=== PATIENT | male | born 1950 | race Caucasian/White ===

== ENCOUNTER 2017-07-30 12:17 | Observation (INO) | payer OTHER, MEDICARE ==
[~2017-07-30] VITALS: Ht 175.3 cm; Wt 73.5 kg
[~2017-07-30 12:17] MED LIST: AMBIEN10 M1; AMINO ACID1 EACH PO; ENBREL50 MG/1 ML SC; GABAPENTIN300 M2 PO; HYDROCODON-ACE1 EAC1 PO; MULTI-DAY VITA1 EACH PO; PREDNISONE 10MG10 M1 PO; PROAIR HFA8.5 GM INH; SYMBICORT 16010.2 GM INH; VALIUM5 M2 PO
--- NOTE | 2017-07-30 13:40 | RADIOLOGY REPORT ---
EXAMINATION: XR CHEST CLINICAL INFORMATION: Cough and shortness of breath, rule out pneumonia. COMPARISON: 10/18/2016. TECHNIQUE: 2 views of the chest were obtained. FINDINGS: Of note the lateral aspect of the right hemithorax is incompletely included in the study, specifically the right costophrenic angle is not well visualized. Visualized portions of lungs are clear bilaterally. There is no evidence of pleural effusion or pneumothorax. The central pulmonary vasculature is within normal limits. The cardiomediastinal silhouette is not enlarged. The bony structures and overlying soft tissues are unremarkable. IMPRESSION: No acute cardiopulmonary findings.
--- NOTE | 2017-07-30 14:38 | ED DYSPNEA/ASTHMA COMPLAINT ---
History of Present Illness General Chief Complaint: Wheezing/Asthma Stated Complaint: ASTHMA/SENT BY DR URIOSTEGUI Source: patient, dr uriostegui Exam Limitations: no limitations Vital Signs & Intake/Output Vital Signs & Intake/Output Vital Signs Date Time Temp Pulse Resp B/P B/P Pulse O2 O2 Flow FiO2 Mean Ox Delivery Rate 07/31 06 98.6 76 20 120/72 94 Room Air 07/30 2249 Room Air Room Air 07/30 2227 98.7 82 20 128/70 97 Venti Mask 07/30 1845 98.6 112 20 149/100 93 Room Air 07/30 1617 92 07/30 1529 93 Room Air 07/30 1529 98.4 90 20 156/94 93 Room Air 07/30 1450 95 07/30 1248 97.9 98 20 139/92 95 Room Air ED Intake and Output 07/31 0000 07/30 1200 Intake Total 300 Output Total Balance 300 Intake, Oral 300 Patient 162 lb Weight Weight Estimated Measurement Method Allergies Coded Allergies: NO KNOWN ALLERGIES (01/11/16) Triage Note: PATIENT TO ER C/C ?ASTHMA EXACERBATION. PATIENT OF DR. URIOSTEGUI, SENT IN FOR EVAL. USING ALBUTEROL, Z-PACK, PREDNISONE WITHOUT RELIEF. WHEEZING NOTED B/L. Triage Nurses Notes Reviewed? yes HPI: Patient presents for evaluation of worsening asthma exacerbation over the past 4 days despite the use of nebulizers and prednisone and azithromycin at home. Pt sent in by pulmonary md. patient states that he has had asthma since 5 years old and typically knows that if he doesn't respond to antibiotics and steroids that he needs medical attention. He denies any associated fever or cold symptoms. He is cautious with going out into the cold air. Symptoms worsen with exertion and nothing seems to make him feel better at this time. (Radha SHIN,Musa Ortiz) Reconcile Medications Albuterol Sulfate (Proair Hfa) 8.5 GM HFA.AER.AD 2 PUF INH PRN ASTHMA ( Reported) Amino Acids (Amino Acid) 1 EACH CAPSULE 1 CAP PO BID SUPPLEMENT (Reported) Budesonide/Formoterol Fumarate (Symbicort 160-4.5 Mcg Inhaler) 10.2 GM HFA.AER.AD 2 PUF INH BID ASTHMA (Reported) Etanercept (Enbrel) 50 MG/1 ML SYRINGE 50 MG SC Q9D RA (Reported) Hydrocodone/Acetaminophen (Hydrocodon-Acetaminophn 10-325) (Unknown Strength) TABLET (Unknown Dose) PO PRN RA (Reported) Multivitamin (Multi-Day Vitamins) 1 EACH TABLET 1 TAB PO BID SUPPLEMENT ( Reported) Zolpidem Tartrate (Ambien) (Unknown Strength) TABLET (Unknown Dose) UNKNOWN ( Reported) (Ghazal SHIN,Roberta) Past History Travel History Traveled to [place] past 21 day No Medical History Any Pertinent Medical History? 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 No (Radha SHIN,Musa Ortiz) Review of Systems Review of Systems Constitutional: Reports: no symptoms. EENTM: Reports: no symptoms. Respiratory: Reports: see HPI. Cardiovascular: Reports: no symptoms. GI: Reports: no symptoms. Genitourinary: Reports: no symptoms. Musculoskeletal: Reports: no symptoms. Skin: Reports: no symptoms. Neurological/Psychological: Reports: no symptoms. Hematologic/Endocrine: Reports: no symptoms. Immunologic/Allergic: Reports: no symptoms. All Other Systems: Reviewed and Negative (Radha SHIN,Musa Ortiz) Physical Exam Physical Exam Respiratory: see below Comments: Gen.: Well-nourished, well-developed, no acute respiratory distress. Head: Normocephalic, atraumatic. Eyes: Normal inspection bilaterally Ears: Normal inspection bilaterally Nose: Normal inspection Throat/mouth : Moist mucosa Neck: Supple, full range of motion, no goiter Heart: Regular rate and rhythm, no murmurs rubs or gallops Lungs: Decreased air entry bilaterally with scattered end expiratory wheezing and delayed expiration Chest: Nontender Back: Normal range of motion Abdomen: Soft, nontender, nondistended, normal bowel sounds Extremities: Normal range of motion grossly, equal radial pulses, no cyanosis clubbing or edema Neurologic: Cranial nerves grossly intact, speech is clear Skin: warm and dry Psychiatric: Calm, cooperative, no apparent delusions or hallucinations (Radha SHIN,Musa Ortiz) Physical Exam Respiratory: see below Core Measures ACS in differential dx? No CVA/TIA Diagnosis No Sepsis Present: No Sepsis Focused Exam Completed? No (Ghazal SHIN,Roberta) Progress Plan of Care: Orders Procedure Date/time Status Regular Diet 07/31 B Active RT: Reevaluation 07/31 1109 Active Change service to 07/31 0720 Active CBC WITHOUT DIFFERENTIAL 07/31 0600 Active BASIC ELECTROLYTES PLUS BUN&CR 07/31 0600 Active RT RE-EVALUATION 07/31 UNK Complete PEAK FLOW MEASUREMENT (GEN) 07/31 UNK Active XRY-CHEST XRAY, TWO VIEWS 07/31 UNK Active STREP PNEUMO URINARY ANTIGEN 07/30 2316 Complete LEGIONELLA URINARY ANTIGEN 07/30 2316 Complete LOWER RESPIRATORY CULTURE 07/30 2316 Active RT: Evaluation 07/30 2248 Active Pathway - chart 07/30 2136 Active Vital Signs 07/30 203 Active Teach/Educate 07/30 2031 Active Pain Treatment and Response 07/30 2031 Active Nutritional Intake, Monitor 07/30 2031 Active Isolation 07/30 203 Active Intake & Output 07/30 203 Active Patient Care Conference 07/30 203 Active Activity/Ambulation 07/30 2031 Active Pathway - chart 07/30 1844 Active Patient Data 07/[address] in observation 07/30 1648 Active ED Holding Orders 07/30 1648 Active Vital Signs 07/30 1648 Active Code Status 07/30 1648 Active Intake & Output 07/30 1532 Active GLYCOSYLATED HGB 07/30 1452 Complete RAPID VIRAL INFLUENZA A 07/30 1436 Complete CBC WITHOUT DIFFERENTIAL 07/30 1436 Complete BASIC METABOLIC PANEL 07/30 1436 Complete TRC EVALUATION (GEN) 07/30 UNK Complete THERAPIST ORDERS 07/30 UNK Complete OXYGEN SETUP (GEN) 07/30 UNK Active House Staff 07/30 UNK Active Lab Add-on Test 07/30 UNK Active VTE Mechanical Prophylaxis 07/30 UNK Active Current Medications Sig/Swati Start time Last Medication Dose Stop Time Status Admin Methylprednisolone 40 MG Q8 07/31 1400 AC (Solumedrol) Azithromycin 500 MG DAILY 07/31 1039 AC (Zithromax) Acetylcysteine 2 ML BID 07/31 1000 AC (Mucosol 20%) Enoxaparin Sodium 40 MG DAILY 07/31 1000 AC (Lovenox) Albuterol Sulfate 3 ML EVERY 4 HRS/AWAKE 07/31 0800 AC 07/31 (Proventil) 0827 Budesonide/ 2 PUF BID 07/30 2199 AC 07/31 Formoterol Fumarate 1013 (Symbicort) Multivitamins 1 TAB BID 07/30 2199 AC 07/31 Therapeutic 1012 (Theragran-M Vitamins Tabs) Acetaminophen 650 MG Q6P PRN 07/30 2144 AC (Tylenol) Albuterol Sulfate 2 PUF BID PRN 07/30 2144 AC (Ventolin) Hydrocodone Bitart/ 1 TAB Q6P PRN 07/30 2144 AC 07/30 Acetaminophen 2233 (Vicodin) Oxycodone/ 2 TAB Q8P PRN 07/30 2144 AC Acetaminophen (Percocet) Laboratory Tests 07/30/17 1452: Anion Gap 14, Estimated GFR > 60, BUN/Creatinine Ratio 31.7 H, Glucose 128 H, Hemoglobin A1c 5.7, Calcium 9.8, CBC w Diff MAN DIFF ORDERED, RBC 4.80, MCV 95.9 H, MCH 31.5 H, RDW 13.3, MPV 6.0 L, Gran % 92.6 H, Lymphocytes % 4.7 L, Monocytes % 2.5, Eosinophils % 0, Basophils % 0.2, Absolute Granulocytes 17.8 H , Absolute Lymphocytes 0.9 L, Absolute Monocytes 0.5, Absolute Eosinophils 0, Absolute Basophils 0, Platelet Estimate ADEQUATE, Normocytic RBCs VERIFIED, Normochromic RBCs VERIFIED, PUBS MCHC 32.8 L Microbiology 07/31 39 URINE ROUT: Legionella Antigen - COMP 07/31 39 URINE ROUT: Streptococcus pneumoniae Antigen (M - COMP STREP PNEUMO BACTERIAL AG 07/30 2315 LOWER RESP: Respiratory Culture - COLB 07/30 231 LOWER RESP: Gram Stain - COLB 07/30 1518 NASOPHARYN: Influenza Virus A & B Rapid Smear - COMP 3:15 PM PATIENT SIGNED OUT TO ME BY DR GARCIA, PENDING FLU SWAB, REEVALUATION. 3:41 PM STILL VERY DYSPNEIC, TIGHT. HIGH DOSE ALBUTEROL, IV MAGNESIUM ORDERED. 4:49 PM EVALUATED AGAIN BY DR URIOSTEGUI. PATIENT REQUIRES OVERNIGHT OBSERVATION. WILL LIKELY D/C IN AM IF BETTER. STILL SIGNIFICANT WHEEZING AND TACHYPNEA. PATIENT ALSO REEVALUATED BY DR URIOSTEGUI. WILL PLACE IN INPATIENT OBSERVATION PATIENT WISHES TO LEAVE TOMORROW. 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 (Radha SHIN,Musa Ortiz) Differential Diagnosis: asthma, CHF, COPD, pulmonary embolism, pneumonia, pneumothorax Diagnostic Imaging: Viewed by Me: Radiology Read. Discussed w/RAD: Radiology Read. Initial ED EKG: none Comments: PATIENT: VIKTOR MORALES PRESENT AGE: 67 PATIENT ACCOUNT NO: [id number] : 49 LOCATION: ER ORDERING PHYSICIAN: Musa Du DO (TBS) SERVICE DATE: 07/30/17 EXAM TYPE: RAD - XRY-CHEST XRAY, TWO VIEWS EXAMINATION: XR CHEST CLINICAL INFORMATION: Cough and shortness of breath, rule out pneumonia. COMPARISON: 10/18/2016. TECHNIQUE: 2 views of the chest were obtained. FINDINGS: Of note the lateral aspect of the right hemithorax is incompletely included in the study, specifically the right costophrenic angle is not well visualized. Visualized portions of lungs are clear bilaterally. There is no evidence of pleural effusion or pneumothorax. The central pulmonary vasculature is within normal limits. The cardiomediastinal silhouette is not enlarged. The bony structures and overlying soft tissues are unremarkable. IMPRESSION: No acute cardiopulmonary findings. DICTATED BY: Ruth De La Rosa MD DATE/TIME DICTATED:07/30/171333 TECHNOLOGY AUDITOR:JUSTUS DATE/TIME TRANSCRIBED:07/30/171333 CONFIDENTIAL, DO NOT COPY WITHOUT APPROPRIATE AUTHORIZATION. <Electronically signed in Other Vendor System> SIGNED BY: Ruth De La Rosa MD [id number] (Roberta Harman MD) Departure Departure Condition: Stable Referrals: Giovanni Aj MD (PCP/Family) Departure Forms: Customer Survey General Discharge Information (Musa Garcia MD) Departure Time of Disposition: 1644 Disposition: STILL A PATIENT Clinical Impression Primary Impression: Asthma exacerbation Observation Note Spoke With: Joe Araujo MD Physician Advisor Notified: MARTA VALENCIA MD (CASE MANAGEMENT) Place Patient In: Non-ED OBS Care Area Rationale for Observation: My rational for observation is as follows [TRC/NEBS, IV STEROIDS, SUPPLEMENTAL OXYGEN, PULMONARY CONSULTATION]. (Roberta Harman MD) Critical Care Note Critical Care Note Critical Care Time: 30-74 min (Roberta Harman MD)
--- NOTE | 2017-07-30 14:47 | Cons- Pulmonary ---
General Information and HPI Consulting Request Date of Consult: 07/30/17 Requested By: ER and patient request Reason for Consult: dyspnea, asthma exacerbation Source of Information: patient Exam Limitations: no limitations History of Present Illness: 67 year old man with asthma on Symbicort. Also with rheumatoid arthritis on Enbrel. For the past few days cough, green phlegm, chills. No fever. Presents to the ED with dyspnea, wheezing, in ER cxr is normal. No sick contacts or travel history. History of neck surgery for pain. No n/v/d/c. No MELCHOR. No chest pain. Allergies/Medications Allergies: Coded Allergies: NO KNOWN ALLERGIES (01/11/16) Home Med List: Albuterol Sulfate (Proair Hfa) 8.5 GM HFA.AER.AD 2 PUF INH PRN ASTHMA ( Reported) Amino Acids (Amino Acid) 1 EACH CAPSULE 1 CAP PO BID SUPPLEMENT (Reported) Budesonide/Formoterol Fumarate (Symbicort 160-4.5 Mcg Inhaler) 10.2 GM HFA.AER.AD 2 PUF INH BID ASTHMA (Reported) Etanercept (Enbrel) 50 MG/1 ML SYRINGE 50 MG SC Q9D RA (Reported) Hydrocodone/Acetaminophen (Hydrocodon-Acetaminophn 10-325) (Unknown Strength) TABLET (Unknown Dose) PO PRN RA (Reported) Multivitamin (Multi-Day Vitamins) 1 EACH TABLET 1 TAB PO BID SUPPLEMENT ( Reported) Zolpidem Tartrate (Ambien) (Unknown Strength) TABLET (Unknown Dose) UNKNOWN ( Reported) Current Medications: Current Medications Sig/Swati Start time Last Medication Dose Route Stop Time Status Admin Albuterol Sulfate 3 ML ONCE ONE 07/30 1445 AC INH 07/30 1446 Ipratropium [place] 2.5 ML ONCE ONE 07/30 1445 AC INH 07/30 1446 Methylprednisolone 125 MG ONCE ONE 07/30 1445 AC IV 07/30 1446 Review of Systems Comments 18 point review of systems was performed and reviewed. Please see pertinent positives and pertinent negatives in the HPI. Otherwise ROS is negative. 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 Surgical History Surgical History: KNEE SURGERY ALECIA ELBOW SURGERY COLON RESECTION HERNIA REPAIR Exam & Diagnostic Data Last 24 Hrs of Vital Signs/I&O Vital Signs Date Time Temp Pulse Resp B/P B/P Pulse O2 O2 Flow FiO2 Mean Ox Delivery Rate 07/30 1248 97.9 98 20 139/92 95 Room Air Intake & Output 07/30 1600 07/30 0800 07/30 0000 Intake Total Output Total Balance Patient 162 lb Weight Weight Estimated Measurement Method Physical Exam Other Physical Findings: Generally - Awake, alert and comfortable without distress Head and neck - normocephalic, atraumatic, EOMI grossly intact Cardiovascular - S1, S2, no murmurs, rubs or gallops Lungs - wheezing bilateral lung olguin Abdomen - Bowel sounds positive, soft, non-tender Extremities - without edema Last 48 Hrs of Labs/Kahlil: Laboratory Tests 07/30/17 1452: Anion Gap 14, Estimated GFR > 60, BUN/Creatinine Ratio 31.7 H, Glucose 128 H, Hemoglobin A1c 5.7, Calcium 9.8, CBC w Diff MAN DIFF ORDERED, RBC 4.80, MCV 95.9 H, MCH 31.5 H, RDW 13.3, MPV 6.0 L, Gran % 92.6 H, Lymphocytes % 4.7 L, Monocytes % 2.5, Eosinophils % 0, Basophils % 0.2, Absolute Granulocytes 17.8 H , Absolute Lymphocytes 0.9 L, Absolute Monocytes 0.5, Absolute Eosinophils 0, Absolute Basophils 0, Platelet Estimate ADEQUATE, Normocytic RBCs VERIFIED, Normochromic RBCs VERIFIED, PUBS MCHC 32.8 L Microbiology 07/31 39 URINE ROUT: Legionella Antigen - COMP 07/31 39 URINE ROUT: Streptococcus pneumoniae Antigen (M - COMP STREP PNEUMO BACTERIAL AG 07/30 1518 NASOPHARYN: Influenza Virus A & B Rapid Smear - COMP Assessment/Plan Impression/Plan: Impression 67 year old man -exacerbation of asthma - likely bronchitis, bacterial vs viral Plan -solumedrol -trc/nebs -check urine studies for strep and legionella -cxr without pneumonia DVT prophylaxis at all times Consult Acknowledgment - Thank you for your consult request.
[2017-07-30 14:58] LABS: ABSOLUTE BASOPHIL COUNT 0 /CUMM (0.0-0.2); ABSOLUTE EOSINOPHIL COUNT 0 /CUMM (0.0-0.7); ABSOLUTE GRANULOCYTE CT 17.8 /CUMM (1.4-6.5); ABSOLUTE LYMPH COUNT 0.9 /CUMM (1.2-3.4); ABSOLUTE MONOCYTE COUNT 0.5 /CUMM (0.10-0.60); BASOPHIL % 0.2 % (0.0-2.0); EOSINOPHIL % 0 % (0-5); GRANULOCYTE % 92.6 % (42.2-75.2); MEAN CORPUSCULAR HGB 31.5 PG (27.0-31.0); MEAN CORPUSCULAR HGB CONC 32.8 G/DL (33.0-37.0); MEAN CORPUSCULAR VOLUME 95.9 FL (80.0-94.0); PLATELET COUNT 407 /CUMM (130-400); RBC DISTRIBUTION WIDTH 13.3 % (11.5-14.5); WHITE BLOOD CELL COUNT 19.2 /CUMM (4.8-10.8)
--- NOTE | 2017-07-30 17:23 | History & Physical ---
[facility] 1723: General Information and HPI MD Statement: I have seen and personally examined VIKTOR MORALES and documented this H&P. The patient is a 67 year old M who presented with a patient stated chief complaint of [SOB, productive cough]. Source of Information: patient Exam Limitations: no limitations History of Present Illness: is a 67 yo man with PMHx. of Asthma (since 5 years old), rheumatoid arthritis (On enbrel), familial polyposis s/p colectomy presented to ED with a c /o SOB and productive cough. Patient symptoms started last week which gets progressively worse over the weekend, he spoke with his mint wafer depositor who prescribed Z-pack and steroid with no improvement, steroid increased to 60 with no change in the condition so, he decided to come in today. Patient report getting out of breath with climbing stairs (not his baseline), he has sick contact ( His ), no recent travel. History is also pertinent for productive cough of green sputum and wheezing He denies fever, chills, chest pain, palpitation and there is no change in urinary or bowel habits. Allergies/Medications Allergies: Coded Allergies: NO KNOWN ALLERGIES (01/11/16) Home Med list Albuterol Sulfate (Proair Hfa) 8.5 GM HFA.AER.AD 2 PUF INH PRN ASTHMA ( Reported) Amino Acids (Amino Acid) 1 EACH CAPSULE 1 CAP PO BID SUPPLEMENT (Reported) Budesonide/Formoterol Fumarate (Symbicort 160-4.5 Mcg Inhaler) 10.2 GM HFA.AER.AD 2 PUF INH BID ASTHMA (Reported) Etanercept (Enbrel) 50 MG/1 ML SYRINGE 50 MG SC Q9D RA (Reported) Hydrocodone/Acetaminophen (Hydrocodon-Acetaminophn 10-325) (Unknown Strength) TABLET (Unknown Dose) PO PRN RA (Reported) Multivitamin (Multi-Day Vitamins) 1 EACH TABLET 1 TAB PO BID SUPPLEMENT ( Reported) Zolpidem Tartrate (Ambien) (Unknown Strength) TABLET (Unknown Dose) UNKNOWN ( Reported) Past History Travel History Traveled to [place] past 21 day No Medical History Neurological: NONE EENT: NONE Cardiovascular: NONE Respiratory: asthma Gastrointestinal: NONE Hepatic: NONE Renal: NONE Musculoskeletal: osteoarthritis, rheumatoid arthritis Psychiatric: NONE Endocrine: NONE Blood Disorders: NONE Cancer(s): NONE 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 Respiratory: Reports: cough, short of breath, sputum production, wheezing. Exam & Diagnostic Data Last 24 Hrs of Vital Signs/I&O Vital Signs Date Time Temp Pulse Resp B/P B/P Pulse O2 O2 Flow FiO2 Mean Ox Delivery Rate 07/31 06 98.6 76 20 120/72 94 Room Air 07/30 2249 Room Air Room Air 07/30 2227 98.7 82 20 128/70 97 Venti Mask 07/30 1845 98.6 112 20 149/100 93 Room Air 07/30 1617 92 07/30 1529 93 Room Air 07/30 1529 98.4 90 20 156/94 93 Room Air 07/30 1450 95 07/30 1248 97.9 98 20 139/92 95 Room Air Intake & Output 07/31 0800 07/31 0000 07/30 1600 Intake Total 300 Output Total Balance 300 Intake, Oral 300 Patient 162 lb 162 lb Weight Weight Estimated Measurement Method Physical Exam General Appearance Alert, Oriented X3, Cooperative, Moderate Distress Lungs decrease air movement, scattered wheezing Last 24 Hrs of Labs/Kahlil: Laboratory Tests 07/30/17 1452: Anion Gap 14, Estimated GFR > 60, BUN/Creatinine Ratio 31.7 H, Glucose 128 H, Hemoglobin A1c Pending, Calcium 9.8, CBC w Diff MAN DIFF ORDERED, RBC 4.80, MCV 95.9 H, MCH 31.5 H, RDW 13.3, MPV 6.0 L, Gran % 92.6 H, Lymphocytes % 4.7 L , Monocytes % 2.5, Eosinophils % 0, Basophils % 0.2, Absolute Granulocytes 17.8 H, Absolute Lymphocytes 0.9 L, Absolute Monocytes 0.5, Absolute Eosinophils 0, Absolute Basophils 0, Platelet Estimate ADEQUATE, Normocytic RBCs VERIFIED, Normochromic RBCs VERIFIED, PUBS MCHC 32.8 L Microbiology 07/31 39 URINE ROUT: Legionella Antigen - COMP 01/17 0040 URINE ROUT: Streptococcus pneumoniae Antigen (M - COMP STREP PNEUMO BACTERIAL AG 07/30 2316 LOWER RESP: Respiratory Culture - COLB 07/30 2316 LOWER RESP: Gram Stain - COLB 07/30 1518 NASOPHARYN: Influenza Virus A & B Rapid Smear - COMP Diagnostic Data CXR Results no acute cardiopulmonary process Assessment/Plan Assessment: is a 67 yo man with PMHx. of Asthma (since 5 years old), rheumatoid arthritis (On enbrel), familial polyposis s/p colectomy presented to ED with a c /o SOB and productive cough. Admitted for asthma exacerbation. Assessment: #Asthma exacerbation #Hx. of Rheumatoid arthritis Plan: * WILL be under observation at general medicine floor * Pulmonary consult with Dr. Jacobson * Urine is positive for Strep antigen, will start PO ceftin * He already given Solu-medrol at ED, will continue with IV steroid * TRC/NEBS * Will send sputum culture * Urine strep, legionella * CXR is clear, will hold on antibiotics pending mint wafer depositor recommendation, patient was treated recently with Z-pack started on . * Will continue home meds * DVT ppx: SC Lovenox * Full Code As Ranked By This Provider Problem List: 1. Asthma exacerbation Core Measures/Misc (03/31) Acute Coronary Syndrome ACS Diagnosis: No Congestive Heart Failure Congestive Heart Failure Diagnosis No Cerebrovascular Accident CVA/TIA Diagnosis: No VTE (View Protocol) VTE Risk Factors Age>40 No Mechanical VTE Prophylaxis d/t N/A MechProphylax Ordered No VTE Pharm Prophylaxis d/t NA PharmProphylax ordered Sepsis (View protocol) Sepsis Present: No Joe Araujo MD 07/30/172021: Attending MD Review Statement Attending Statement Attending MD Statement: examined this patient, discuss w/resident/PA/RESEARCH PHYSICIST, agreed w/resident/PA/RESEARCH PHYSICIST, reviewed EMR data (avail) Attending Assessment/Plan: 67M PMH asthma, rheumatoid arthritis on biologic presenting with 1 day of dyspnea and wheezing in the setting of asthma exacerbation. No recent sick contacts, has mild dry cough, no evidence of pneumonia on exam or labs. Bilateral significant wheezing on exam, still dyspneic despite continuous nebulizer treatment in ED. 1. Asthma exacerbation Plan - Admit to general medicine - Solumedrol - Nebulizerrs - Pulmonary consult - Daily peak flow - Continue home medications - DVT PPx
--- NOTE | 2017-07-30 20:25 | Admission Certification ---
Admission Certification Certification Statement - As attending physician, I certify that at the time of - admission, based on clinical presentation, severity of - symptoms, need for further diagnostic testing and - therapeutic interventions, and risk of adverse outcomes - without in-hospital treatment, in my clinical assessment, - this patient requires an acute hospital stay for a minimum - of two nights or longer. I have also considered psychsocial - factors such as support system, advanced age, financial - issues, cognitive issues, and failed out-patient treatments, - past re-admission history, safety of patient, and lack of - compliance as applicable. Specific rationale supporting this admission is: Status asthaticus
[2017-07-30 22:27] VITALS: BP 128/70
[2017-07-31 06:27] VITALS: BP 120/72
--- NOTE | 2017-07-31 10:01 | PN-Observation ---
Edelmira SHIN,Natalia 07/31/17 1001: Observation Note Observation Note _ I have personally examined VIKTOR MORALES. him disposition is uncertain at this time. Before a determination can be made, he requires continued observation for the following reasons asthma exacerbation. Assessment/Plan Assessment: Assessment: is a 67 yo man with PMHx. of Asthma (since 5 years old), rheumatoid arthritis (On enbrel), familial polyposis s/p colectomy presented to ED with a c /o SOB and productive cough. Admitted for asthma exacerbation. Assessment: #Asthma exacerbation #Hx. of Rheumatoid arthritis Plan: * observation at general medicine floor * Pulmonary consult with Dr. Wyatt today * Urine is positive for Strep antigen continue ceftin po but as per dr. wyatt switch patient to azithromycin for anti-inflammatory properties * He already given Solu-medrol at ED, will continue with IV steroid 40 bid * TRC/NEBS * follow sputum culture * CXR is clear * Will continue home meds * DVT ppx: SC Lovenox * Full Code Problem List: 1. ASTHMA EXACERBATION 2. RHEUMATOID ARTHRITIS Subjective Follow-up For: asthma exacerbtion RA Subjective: patient continues to have chest tightness. otherwise is upbeat and talkative with no complaints. Review of Systems Constitutional: Reports: no symptoms. Respiratory: Reports: short of breath, wheezing. Objective Last 24 Hrs of Vital Signs/I&O Vital Signs Date Time Temp Pulse Resp B/P B/P Pulse O2 O2 Flow FiO2 Mean Ox Delivery Rate 07/31 1943 Room Air 07/31 1615 95 Room Air 07/31 1522 98.2 83 18 152/76 94 07/31 0827 94 Room Air Room Air 07/31 0627 98.6 76 20 120/72 94 Room Air 07/30 2249 Room Air Room Air 07/30 2227 98.7 82 20 128/70 97 Venti Mask Intake & Output 07/31 1600 07/31 0800 07/31 0000 Intake Total 1000 1000 300 Output Total Balance 1000 1000 300 Intake, Oral 1000 1000 300 Patient 162 lb Weight Physical Exam General Appearance: Alert, Oriented X3, Cooperative, No Acute Distress Cardiovascular: Regular Rate, Normal S1, Normal S2, No Murmurs Lungs: wheezes throughout Triston Kowalski 07/31/17 1159: Attending Addendum Attending Brief Note Patient seen/examined bedside. Patient c/o shortness of breath, mild use of accessory muscles. Placed in observation status for asthma exacerbation 2/2 bronchitis. Pulmonary consulted during the hospital stay. Recommend iv steroids and abx ceftin for 7 days. Repeat chest xray f/u. Patient needs to follow up with PCP and pulmonary Dr Wyatt at discharge.
--- NOTE | 2017-07-31 10:42 | PN- Pulmonary ---
Subjective HPI/Critical Care Issues: pt seen and examined feels somewhat better still with signficant wheezing peak flow 210 strep ag positive Objective Current Medications: Current Medications Sig/Swati Start time Last Medication Dose Route Stop Time Status Admin Acetaminophen 650 MG Q6P PRN 07/30 2145 AC PO Acetylcysteine 2 ML BID 07/31 1000 AC INH Albuterol Sulfate 3 ML EVERY 4 HRS/AWAKE 07/31 0800 AC 07/31 INH 0827 Albuterol Sulfate 2 PUF BID PRN 07/30 2145 AC INH Albuterol Sulfate 18 ML ONCE ONE 07/30 1545 DC 07/30 INH 07/30 1546 1617 Albuterol Sulfate 3 ML ONCE ONE 07/30 1445 DC 07/30 INH 07/30 1446 1450 Azithromycin 500 MG DAILY 07/31 1039 UNVr PO Budesonide/ 2 PUF BID 07/30 2200 AC 07/31 Formoterol Fumarate INH 1013 Cefuroxime Sodium 250 MG Q12 07/31 1000 DC 07/31 PO 1012 Enoxaparin Sodium 40 MG DAILY 07/31 1000 AC SC Hydrocodone Bitart/ 1 TAB Q6P PRN 07/30 2145 AC 07/30 Acetaminophen PO 2233 Ipratropium [place] 2.5 ML ONCE ONE 07/30 1445 DC 07/30 INH 07/30 1446 1450 Magnesium Sulfate 1 GM Q2H 07/30 1545 DC 07/30 Dextrose/Water 100 ML IV 07/30 1944 1813 Methylprednisolone 40 MG Q8 07/31 1400 UNVr IV Methylprednisolone 40 MG Q12 07/30 2200 DC 07/31 IV 1010 Methylprednisolone 0 .STK-MED ONE 07/30 1457 DC .ROUTE Methylprednisolone 125 MG ONCE ONE 07/30 1445 DC 07/30 IV 07/30 1446 1456 Multivitamins 1 TAB BID 07/30 2200 AC 07/31 Therapeutic PO 1012 Oxycodone/ 2 TAB Q8P PRN 07/30 2145 AC Acetaminophen PO Zolpidem Tartrate 10 MG .STK-MED ONE 07/31 0028 DC PO 07/31 0029 Zolpidem Tartrate 10 MG ONCE ONE 07/30 2230 DC 07/31 PO 07/30 223 0030 Zolpidem Tartrate 5 MG AT BEDTIME 07/30 2200 DC PO Vital Signs & I&O Last 24 Hrs of Vitals and I&O: Vital Signs Date Time Temp Pulse Resp B/P B/P Pulse O2 O2 Flow FiO2 Mean Ox Delivery Rate 07/31 0627 98.6 76 20 120/72 94 Room Air 07/30 2249 Room Air Room Air 07/30 2227 98.7 82 20 128/70 97 Venti Mask 07/30 1845 98.6 112 20 149/100 93 Room Air 07/30 1617 92 07/30 1529 93 Room Air 07/30 1529 98.4 90 20 156/94 93 Room Air 07/30 1450 95 07/30 1248 97.9 98 20 139/92 95 Room Air Intake & Output 07/31 1600 07/31 0800 07/31 0000 Intake Total 1000 300 Output Total Balance 1000 300 Intake, Oral 1000 300 Patient 162 lb Weight Exam Other Physical Findings: Generally - Awake, alert and comfortable without distress Head and neck - normocephalic, atraumatic, EOMI grossly intact Cardiovascular - S1, S2, no murmurs, rubs or gallops Lungs - wheezing bilateral lung olguin Abdomen - Bowel sounds positive, soft, non-tender Extremities - without edema Results Last 24 Hrs of Lab Results: Laboratory Tests 07/30/17 1452: Anion Gap 14, Estimated GFR > 60, BUN/Creatinine Ratio 31.7 H, Glucose 128 H, Hemoglobin A1c 5.7, Calcium 9.8, CBC w Diff MAN DIFF ORDERED, RBC 4.80, MCV 95.9 H, MCH 31.5 H, RDW 13.3, MPV 6.0 L, Gran % 92.6 H, Lymphocytes % 4.7 L, Monocytes % 2.5, Eosinophils % 0, Basophils % 0.2, Absolute Granulocytes 17.8 H , Absolute Lymphocytes 0.9 L, Absolute Monocytes 0.5, Absolute Eosinophils 0, Absolute Basophils 0, Platelet Estimate ADEQUATE, Normocytic RBCs VERIFIED, Normochromic RBCs VERIFIED, PUBS MCHC 32.8 L Impression/Plan Impression/Plan Impression/Plan: Impression 67 year old man -exacerbation of asthma - likely bronchitis, bacterial vs viral Plan -change solumedrol to 40mg iv q8h -mucomyst nebulized bid -cont course of ceftin -trc/nebs -repeat CXR today DVT prophylaxis at all times
--- NOTE | 2017-07-31 12:57 | RADIOLOGY REPORT ---
EXAMINATION: XR CHEST CLINICAL INFORMATION: 67-year-old male patient with productive cough. Urine is strep positive. Per chart: History of smoking. History of emphysema. Chronic small airways disease. COMPARISON: Chest x-ray done yesterday. CT of the chest done 10/20/2014 and 09/22/2015. TECHNIQUE: 2 views of the chest were obtained. FINDINGS: Reexamination shows alterations of the lungs consistent with emphysema primarily in the upper lobes. Lungs are symmetrically aerated showing no acute disease. Heart is normal in size. No pleural effusion is seen. IMPRESSION: No evidence of pneumonia.
[2017-07-31 15:22] VITALS: BP 152/76
[2017-07-31 23:02] VITALS: BP 124/80
[2017-08-01 06:20] VITALS: BP 140/76
--- NOTE | 2017-08-01 07:28 | Patient Discharge Instructions ---
Discharge Instructions General Discharge Information You were seen/treated for: asthma exacerbation Special Instructions: Please follow up with your PCP in a week Please follow up with in a week Please take albuterol inhaler as needed and symbicort scheduled Diet Continue normal diet: Yes Activity Full Activity/No Limits: Yes Acute Coronary Syndrome Inclusion Criteria At DC or during hospital stay patient has or had the following: ACS DIAGNOSIS No Discharge Core Measures Meds if any: Prescribed or Continued at Discharge Meds if any: NOT Prescribed or Continued at Discharge Congestive Heart Failure Inclusion Criteria At DC or during hospital stay patient has or had the following: CHF DIAGNOSIS No Discharge Core Measures Meds if any: Prescribed or Continued at Discharge Meds if any: NOT Prescribed or Continued at Discharge Cerebrovascular accident Inclusion Criteria At DC or during hospital stay patient has or had the following: CVA/TIA Diagnosis No Discharge Core Measures Meds if any: Prescribed or Continued at Discharge Meds if any: NOT Prescribed or Continued at Discharge Venous thromboembolism Inclusion Criteria VTE Diagnosis No VTE Type NONE VTE Confirmed by (Test) NONE Discharge Core Measures - Per Current guidelines, there needs to be overlap - treatment for the first 5 days of Warfarin therapy. - If discharged on Warfarin prior to 5 days of - overlap therapy, the patient will need to be - assessed for post discharge needs including - *Post discharge parental anticoagulation - *Warfarin and/or parental anticoagulation education - *Follow up date to check INR post discharge At least 5 days overlap therapy as Inpatient No Meds if any: Prescribed or Continued at Discharge Note: Overlap Therapy is Warfarin and Anticoagulant Meds if any: NOT Prescribed or Continued at Discharge
[2017-08-01] MEDS ORDERED: AZITHROMYCIN500 M3 PO ×3 (07:29→13:57)
[2017-08-01 08:43] LABS: ABSOLUTE BASOPHIL COUNT 0 /CUMM (0.0-0.2); ABSOLUTE EOSINOPHIL COUNT 0 /CUMM (0.0-0.7); ABSOLUTE GRANULOCYTE CT 22.1 /CUMM (1.4-6.5); ABSOLUTE LYMPH COUNT 1.3 /CUMM (1.2-3.4); ABSOLUTE MONOCYTE COUNT 0.4 /CUMM (0.10-0.60); BASOPHIL % 0 % (0.0-2.0); EOSINOPHIL % 0 % (0-5); GRANULOCYTE % 92.9 % (42.2-75.2); HEMATOCRIT 42.4 % (42-52); MEAN CORPUSCULAR HGB 31.9 PG (27.0-31.0); MEAN CORPUSCULAR HGB CONC 33.5 G/DL (33.0-37.0); MEAN CORPUSCULAR VOLUME 95.2 FL (80.0-94.0); MEAN PLATELET VOLUME 6.4 FL (7.4-10.4); PLATELET COUNT 414 /CUMM (130-400); RBC DISTRIBUTION WIDTH 13.4 % (11.5-14.5); RED BLOOD CELL CT 4.46 /CUMM (4.70-6.10); WHITE BLOOD CELL COUNT 23.8 /CUMM (4.8-10.8)
[2017-08-01] MEDS ORDERED: CEFUROXIME250 M1 PO ×3 (10:44→14:34)
[2017-08-01] MEDS ORDERED: PREDNISONE10 M2 PO ×2 (10:44→13:57)
--- NOTE | 2017-08-01 11:37 | PN- Pulmonary ---
Subjective HPI/Critical Care Issues: Patient seen and examined this morning. His wheezing has improved and he is ready for discharge today. Objective Current Medications: Current Medications Sig/Swati Start time Last Medication Dose Route Stop Time Status Admin Acetaminophen 650 MG Q6P PRN 07/30 2145 AC PO Acetylcysteine 2 ML BID 07/31 1000 AC 08/01 INH 0940 Albuterol Sulfate 3 ML EVERY 4 HRS/AWAKE 07/31 0800 AC 08/01 INH 0847 Albuterol Sulfate 2 PUF BID PRN 07/30 2145 AC INH Azithromycin 500 MG ONCE ONE 08/01 0930 CAN PO 08/01 0931 Azithromycin 500 MG DAILY 07/31 1039 AC 08/01 PO 1023 Budesonide/ 2 PUF BID 07/30 2200 AC 08/01 Formoterol Fumarate INH 1024 Cefuroxime Sodium 250 MG Q12 08/01 1000 CAN PO Enoxaparin Sodium 40 MG DAILY 07/31 1000 AC SC Hydrocodone Bitart/ 2 TAB Q6H 07/31 2030 AC 08/01 Acetaminophen PO 1026 Hydrocodone Bitart/ 2 TAB Q6 07/31 1800 DC 07/31 Acetaminophen PO 2031 Hydrocodone Bitart/ 1 TAB Q6P PRN 07/30 2145 DC 07/30 Acetaminophen PO 2233 Methylprednisolone 40 MG Q8 07/31 1400 DC 08/01 IV 0604 Multivitamins 1 TAB BID 07/30 2200 AC 08/01 Therapeutic PO 1023 Oxycodone/ 2 TAB Q8P PRN 07/30 2145 AC Acetaminophen PO Prednisone 40 MG DAILY 08/01 1000 AC PO Zolpidem Tartrate 5 MG ONCE ONE 08/01 0030 DC 08/01 PO 08/01 0031 0111 Vital Signs & I&O Last 24 Hrs of Vitals and I&O: Vital Signs Date Time Temp Pulse Resp B/P B/P Pulse O2 O2 Flow FiO2 Mean Ox Delivery Rate 08/01 0851 93 Room Air Room Air 08/01 0620 97.9 71 18 140/76 92 Room Air 08/01 0600 21 98 Nasal 3.0L Cannula 08/01 0000 95 Room Air 07/31 2302 97.7 70 20 124/80 95 Room Air 07/31 1943 Room Air 07/31 1615 95 Room Air 07/31 1522 98.2 83 18 152/76 94 Intake & Output 08/01 1600 08/01 0800 08/01 0000 Intake Total 210 600 Output Total Balance 210 600 Intake, IV 10 Intake, Oral 200 600 Exam Other Physical Findings: Generally - Awake, alert and comfortable without distress Head and neck - normocephalic, atraumatic, EOMI grossly intact Cardiovascular - S1, S2, no murmurs, rubs or gallops Lungs - wheezing bilateral lung olguin Abdomen - Bowel sounds positive, soft, non-tender Extremities - without edema Results Last 24 Hrs of Lab Results: Laboratory Tests 08/01/17 0800: Anion Gap 14, Estimated GFR > 60, BUN/Creatinine Ratio 33.3 H, CBC w Diff MAN DIFF ORDERED, RBC 4.46 L, MCV 95.2 H, MCH 31.9 H, RDW 13.4, MPV 6.4 L, Gran % 92.9 H, Lymphocytes % 5.3 L, Monocytes % 1.8, Eosinophils % 0, Basophils % 0 , Absolute Granulocytes 22.1 H, Absolute Lymphocytes 1.3, Absolute Monocytes 0.4, Absolute Eosinophils 0, Absolute Basophils 0, Platelet Estimate ADEQUATE, Normocytic RBCs VERIFIED, Normochromic RBCs VERIFIED, PUBS MCHC 33.5 Impression/Plan Impression/Plan Impression/Plan: Impression 67 year old man -exacerbation of asthma - likely bronchitis, bacterial vs viral Plan -dc today -prednisone 60x3, 50x3, 40x3, 30x3, 20x3, 10x3 then stop -course of abx 7 days -trc/nebs -repeat CBC next week - leukocytosis likely steroid induced DVT prophylaxis at all times
--- NOTE | 2017-08-01 13:50 | PN-Observation ---
Edelmira SHIN,Natalia 08/01/17 1350: Observation Note Observation Note _ I have personally examined VIKTOR MORALES. him disposition is uncertain at this time. Before a determination can be made, he requires continued observation for the following reasons asthma exacerbation Assessment/Plan Assessment: Assessment: is a 67 yo man with PMHx. of Asthma (since 5 years old), rheumatoid arthritis (On enbrel), familial polyposis s/p colectomy presented to ED with a c /o SOB and productive cough. Admitted for asthma exacerbation. Assessment: #Asthma exacerbation likely bronchitis, bacterial or viral #Hx. of Rheumatoid arthritis Plan: * observation at general medicine floor * Pulmonary consult with Dr. Wyatt YESTERDAY who he follows outpatient. * Urine is positive for Strep antigen continue ceftin PO 250mg bid. WE ADDED AZITHRO FOR ANTI-INFLAM PROPERTIES * He already given Solu-medrol at ED, and increased to solumedrol 40mg iv q8h yesterday * TRC/NEBS * follow sputum culture * CXR is clear * Will continue home meds * DVT ppx: SC Lovenox * Full Code Subjective Follow-up For: asthma exac. Review of Systems Constitutional: Reports: no symptoms. Objective Last 24 Hrs of Vital Signs/I&O Vital Signs Date Time Temp Pulse Resp B/P B/P Pulse O2 O2 Flow FiO2 Mean Ox Delivery Rate 08/01 0851 93 Room Air Room Air 08/01 0620 97.9 71 18 140/76 92 Room Air 08/01 0600 21 98 Nasal 3.0L Cannula 08/01 0000 95 Room Air 07/31 2302 97.7 70 20 124/80 95 Room Air Intake & Output 08/01 1600 08/01 0800 08/01 0000 Intake Total 900 210 600 Output Total Balance 900 210 600 Intake, IV 10 Intake, Oral 900 200 600 Physical Exam General Appearance: Alert, Oriented X3, Cooperative, No Acute Distress Triston Kowalski 08/01/17 1352: Assessment/Plan Problem List: 1. ASTHMA EXACERBATION Attending Addendum Attending Brief Note Patient seen/examined bedside. Patient denies shortness of breath, minimal use of accessory muscles. Placed in observation status for asthma exacerbation 2/2 bronchitis. Pulmonary consulted during the hospital stay. Change iv to PO steroids taper and abx for 5-7 days. Repeat chest xray f/u negative for consolidation. Patient needs to follow up with PCP and pulmonary Dr Wyatt at discharge.
[2017-08-02] MEDS ORDERED: AUGMENTIN 875-1 EACH PO (12:56)
== END 2017-08-01 14:58 ==
LOC: ERH 12:17 → ERHI 16:48 → 2NA 16:48 → ENRESERV 18:58 → ENTRNSPT 19:38 → EDTRNSPTSTS 19:39 → 2NA 19:52 → CMPTRNSPT 20:09 → 2NA 07-31 09:08 → ENPENDDIS 08-01 14:25 → 2NA 08-01 14:58
PROVIDERS: Emergency Medicine; Student in an Organized Health Care Education/Training Program
DX: J45.901 Unspecified asthma with (acute) exacerbation (principal); M06.9 Rheumatoid arthritis, unspecified; M19.90 Unspecified osteoarthritis, unspecified site; Z87.891 Personal history of nicotine dependence; D12.6 Benign neoplasm of colon, unspecified; Z79.899 Other long term (current) drug therapy
CPT/HCPCS: 1263; 1271; 1395; 1426; 36415; 71046; 82436; 87070; 87449; 87450; 87804; 87804-59; 94644; 96374; 96375; 99291; G0378; J0456; J1650; J2920; J2930; J3490; J7608

== ENCOUNTER → 2017-11-12 | Day surgery (SDC) | payer OTHER, MEDICARE ==
[~2017-11-12] VITALS: Ht 175.3 cm; Wt 74.4 kg
[~2017-11-12] MED LIST changes: -AMBIEN10 M1; +AMBIEN10 M1 PO; +AUGMENTIN 875-1 EACH PO; +AZITHROMYCIN500 M3 PO; +CEFUROXIME250 M1 PO; +MULTIVITAMINS1 EAC9 PO; +PREDNISONE10 M2 PO; +VIAGRA100 M1 PO
--- NOTE | 2017-11-12 12:00 | Operative Report ---
Operative/Inv Procedure Report Surgery Date: 11/12/17 Name of Procedure: Laparoscopic preperitoneal mesh repair of RIH Pre-Operative Diagnosis: RIH Post-Operative Diagnosis: same, indirect Estimated Blood Loss: scant Surgeon/Staff Scientist: Ernestine SHIN,Dru MAR Anesthesia: general endotracheal tube Operative/Procedure Note Note: Patient was positioned supine on the table. After successful induction of general anesthesia the inguinal and surrounding areas were clipped prepped and draped in the usual sterile fashion. After injection of local anesthetic at the bottom of the umbilicus off the midline to the right, a 1 1/2 cm curved incision was made with a 15 blade, then deepened through Murray's fascia, sweeping off the rectus sheath. A horizontal 1-1/2 cm incision was made between the fibers, elevating these edges with 0 Vicryl stay sutures. Then retracting the muscle laterally, clearing off the posterior rectus sheath, this space is developed down the midline to the pubis sequentially, with an S retractor, a peanut dissector, then the balloon-camera device, inflating it 30-40 pumps while watching how it opens up the space, keeping the epigastrics up. The balloon is then replaced with a 10 mm Santoyo trocar, inserted, shortened, and secured with the stay sutures, gas turned on to 12 not 15 mm. Then two 5 mm trochars are inserted in the midline just below the camera, spaced by approximately 3 cm. Using mostly blunt dissection with peanuts to define the anatomy, first Harshil's ligament is swept off medially, checking the medial spaces, direct and femoral. There were no hernias there. Then briefly skipping over the area of the iliac fat pad, we developed the iliopubic tract out laterally to the iliac crest. Then we returned to the area of the fat pad where the hernia sac and the cord structures are adherent, coursing up into an attenuated deep ring. The cord structures form a triangle with the vas approaching medially and the main vessels approaching laterally, with the apex at the deep ring. There was some preperitoneal fat up inside in front that was dragged down and out, helping identify the distal lip of the hernia sac, which is then carefully peeled off the cord structures, especially the vas. The cord is also from the underlying iliac fat. Once the hernia sac is from the cord structures down to the base of this "triangle," a Parietex sided mesh with the suture, is marked and stuffed down the camera trocar, then unfurled in a systematic fashion , first with the smaller leaflet passing behind the cord structures, until the flap covers the epigastrics, covering the deep ring, then the larger leaflet is released from the suture, double-covering the smaller one, but also extends laterally out to the iliac crest, medially over Harshil's ligament, and superiorly towards the camera. There is a third part of the mesh, that covers the iliac fat pad like a skirt. The mesh was adjusted back and forth so that the keyhole is centered around the cord, lays flat and the edges are not curling. A trial run of letting the gas escape a little bit to see how the mesh would lay as the peritoneum comes back down is done, then when we're satisfied, we let rest of the gas escape, pulling out the instruments and trochars. The fascia is closed with a [id number] 0 Vicryl suture, tying the stay sutures on top. Then we closed the 3 skin incisions with interrupted 4-0 Monocryl, 3 for the umbilical, one each for the smaller ones, followed by Mastisol, Steri-Strips and Band-Aids. Overall estimated blood loss was minimal, lap and sponge counts were correct, wound expectancy was clean, IV fluids crystalloid, complications none, patient tolerated the procedure well, did not significantly javier during extubation and was returned to the recovery room in satisfactory condition.
== END ==
LOC: STS 01:10
DX: K40.90 Unilateral inguinal hernia, without obstruction or gangrene, not specified as recurrent (principal); M06.9 Rheumatoid arthritis, unspecified; J45.909 Unspecified asthma, uncomplicated
CPT/HCPCS: C1781; J0131; J0690; J2250; J3490